=== PATIENT | male | born 1950 | race Caucasian/White ===

== ENCOUNTER 2016-09-21 01:53 | Emergency (ER) | payer MEDICARE, BC, OTHER ==
[~2016-09-21] VITALS: Ht 188 cm; Wt 104.3 kg
[2016-09-21] MEDS ORDERED: PRAV40TA2 (02:13)
[2016-09-21] MEDS ORDERED: TIMO5OPG (02:13)
[2016-09-21] MEDS ORDERED: FINA5TAB2 (02:13)
[2016-09-21] MEDS ORDERED: LATA5OPD (02:13)
[2016-09-21] MEDS ORDERED: HYDROmorphone HCL 1 MG/ML SYRINGE (J1170) As Ordered ONE (02:26)
[2016-09-21] MEDS ORDERED: KETOROLAC 30 MG/ML VIAL (J1885) As Ordered ONE (02:26)
[2016-09-21] MEDS ORDERED: ONDANSETRON 4MG/2ML VIAL (J2405) As Ordered ONE (02:26)
[2016-09-21] MEDS ORDERED: NS 1,000 ML IV ONE ×3 (02:30→06:00)
[2016-09-21] MEDS ORDERED: HYDROmorphone HCL 1 MG/ML SYRINGE (J1170) IV ONE ×3 (02:30→04:45)
[2016-09-21] MEDS ORDERED: KETOROLAC 30 MG/ML VIAL (J1885) IV ONE (02:30)
[2016-09-21 02:33] LABS: BASO % 0.4 % (0.0-1.0); EOS # 0.3 K/mm3 (0.0-0.50); EOS % 3.3 % (0.0-3.0); LARGE UNSTAINED CELL # 0.3 K/mm3 (0.0-0.4); LARGE UNSTAINED CELL % 3.2 % (0.0-4.0); LYMPH # 3.9 K/mm3 (1.5-4.5); LYMPH % 43.6 % (24.0-44.0); MEAN CORPUSCULAR HEMOGLOBIN 32.9 pg (27.0-33.0); MEAN CORPUSCULAR HGB CONC 35.1 g/dl (32.0-36.5); MEAN CORPUSCULAR VOLUME 93.6 fl (80.0-96.0); MONO # 0.7 K/mm3 (0.0-0.8); MONO % 8.1 % (0.0-5.0); NEUTROPHILS # 3.4 K/mm3 (1.8-7.7); NEUTROPHILS % 41.4 % (36.0-66.0); PLATELET COUNT, AUTOMATED 313 k/mm3 (150-450); WHITE BLOOD COUNT 8.3 K/mm3 (4.0-10.0)
[2016-09-21] MEDS ORDERED: ONDANSETRON 4MG/2ML VIAL (J2405) IV ONE (02:45)
[2016-09-21 02:51] LABS: ANION GAP 7 MEQ/L (8-16); BLOOD UREA NITROGEN 21 MG/DL (7-18); CALCIUM LEVEL 9.5 MG/DL (8.8-10.2); CARBON DIOXIDE LEVEL 28 MEQ/L (21-32); CHLORIDE LEVEL 105 MEQ/L (98-107); CREATININE FOR GFR 1.17 MG/DL (0.70-1.30); GLOMERULAR FILTRATION RATE > 60.0 (>49); GLUCOSE, FASTING 115 MG/DL (80-110); POTASSIUM SERUM 3.6 MEQ/L (3.5-5.1); SODIUM LEVEL 140 MEQ/L (136-145)
--- NOTE | 2016-09-21 03:20 | REPUSA ---
CLINICAL HISTORY: Abdominal pain. TECHNIQUE: Multiple axial, sagittal and coronal CT images were obtained through the abdomen and pelvi s without administration of oral or IV contrast material. COMMENTS: The liver is of uniform attenuation without mass or defect. There is no intra or extrahepatic biliary ductal dilatation. The spleen is normal. The gallbladder contains several small calcified stones. T he pancreas is of normal contour and attenuation characteristics. There is no evidence of adrenal mas s. The kidneys are normal in size, shape and configuration. No left renal or ureteral calculi are identi fied. 2 mm right UVJ calculus producing mild hydroureteronephrosis. Left mid sowmya renal cyst is noted measuring 3 cm, There is no evidence for appendicitis. There is no bowel wall thickening. No evidence for small or la rge bowel obstruction. There is no evidence of abdominal ascites or lymphadenopathy. There is no evidence of intrinsic or extrinsic bladder mass. There is no pelvic ascites or lymphadeno kira. Images of the lung bases show no evidence of pleural or parenchymal mass. There are no pleural effusi ons. The bony structures are free of lytic or blastic lesions. Multilevel degenerative changes are seen in volving the thoracolumbar spine. S/p bilateral totl hip replacement with severe streak artifacts. Scattered calcifications are seen involving the aorta and major branches compatible with atherosclero sis. IMPRESSION: 2 mm right UVJ calculus producing mild hydroureteronephrosis. Gallstones. Thank you for your kind referral of this patient.
[2016-09-21] MEDS ORDERED: TAMSULOSIN 0.4 MG CAP PO ONE (04:30)
[2016-09-21] MEDS ORDERED: VICO5TAB16 PO (06:23)
[2016-09-21 07:08] VITALS: BP 144/84
== END 2016-09-21 07:09 | disposition home or self-care (01) ==
LOC: M ED 03:23
DX: N20.1 Calculus of ureter (principal)
CPT/HCPCS: 74176; 80048; 85025; 96361; 96374; 96375; 96376; 99283; J1170; J1885; J2405

== ENCOUNTER → 2016-12-31 | Outpatient (REF) | payer MEDICARE, BC, OTHER ==
[~2016-12-31] MED LIST: FINA5TAB2; LATA5OPD; PRAV40TA2; TIMO5OPG; VICO5TAB16 PO
== END ==
LOC: M SMT 12:47
PROVIDERS: ATTEND Nurse Practitioner Women's Health
DX: N50.819 Testicular pain, unspecified (principal)
CPT/HCPCS: 81001; 87088; 87186; G0463

== ENCOUNTER → 2017-01-01 | Outpatient (CLI) | payer MEDICARE, BC, OTHER ==
--- NOTE | 2017-01-02 09:42 | REP ---
CT of the abdomen and pelvis without IV or bowel contrast: Comparison is 09/21/2016. The previous mild right hydronephrosis has resolved. The previous 2 mm calculus at the UVJ of the right ureter is no longer present. There are no renal or ureteral calculi on the right or left on the study today. There is a left renal mid pole cyst today measuring 3.9 cm (3.6 cm previously). The visualized lung hernandez are unremarkable. The unenhanced hepatic parenchyma is homogeneous. There are small calculi in the gallbladder. The gallbladder is otherwise unremarkable. Pancreas and spleen are normal size and unremarkable. The adrenals are unremarkable. The abdominal aorta is unremarkable. There is no bowel distension. Mesentery is unremarkable. Pelvis: The appendix has a normal appearance. There is no ascites. There is sigmoid diverticulosis without diverticulitis. There are bilateral hip arthroplasties resulting in significant beam-hardening artifact obscuring the inferior pelvis. This is unchanged. No pelvic adenopathy is identified. There is degenerative disc disease in the lumbar spine and L2-3, unchanged. Impression: There is no hydronephrosis. The previous distal right ureteral calculus is no longer present. There are no renal calculi. There is a left renal cyst. There is cholelithiasis. There is diverticulosis without diverticulitis. There are bilateral hip arthroplasties resulting in significant beam-hardening artifact. Signed by Jaime Hamm MD 01/02/2017 08:29 A
== END ==
LOC: M RAD 17:08
PROVIDERS: ATTEND Nurse Practitioner Women's Health
DX: N50.819 Testicular pain, unspecified (principal); N20.1 Calculus of ureter; N28.1 Cyst of kidney, acquired; N21.0 Calculus in bladder; K57.30 Diverticulosis of large intestine without perforation or abscess without bleeding

== ENCOUNTER → 2017-01-22 | Outpatient (CLI) | payer MEDICARE, BC, OTHER ==
[2017-01-23 14:15] LABS: PSA TOTAL 0.4 ng/mL (0.0-4.0)
== END ==
LOC: M SMT 09:19
PROVIDERS: ATTEND Urology
DX: N39.0 Urinary tract infection, site not specified (principal); N40.1 Benign prostatic hyperplasia with lower urinary tract symptoms
CPT/HCPCS: 36415; 51798; 84154; 87086; G0463

== ENCOUNTER 2017-08-09 15:41 | Emergency (ER) | payer MEDICARE, BC, OTHER ==
[2017-08-09] MEDS: fentaNYL 100 MCG/2 ML INJECTION (J3010) IV (16:04)
[2017-08-09] MEDS: OXYCODONE/APAP 5MG/325MG(BULK FOR ED) 1 TABLET PO (18:00)
[2017-08-09] MEDS: PERCOCET 5MG/325MG TAB PO (18:05)
== END 2017-08-09 18:16 | disposition home or self-care (01) ==
LOC: M ED 15:41
DX: S72.125A Nondisplaced fracture of lesser trochanter of left femur, initial encounter for closed fracture (principal); X58.XXXA Exposure to other specified factors, initial encounter; Y92.099 Unspecified place in other non-institutional residence as the place of occurrence of the external cause; Y93.9 Activity, unspecified; Y99.9 Unspecified external cause status; K57.90 Diverticulosis of intestine, part unspecified, without perforation or abscess without bleeding; Z79.899 Other long term (current) drug therapy; Z96.641 Presence of right artificial hip joint; Z96.642 Presence of left artificial hip joint
CPT/HCPCS: J3010

== ENCOUNTER → 2018-02-12 | Outpatient (REF) | payer MEDICARE, OTHER ==
[2018-02-12 14:35] LABS: TROPONIN I < 0.02 NG/ML (< 0.10)
[2018-02-13 14:10] LABS: Lyme Disease IgG/IgM Antibodie <0.91 ISR (0.00-0.90); Lyme Disease IgM Ab Quantitati <0.80 index (0.00-0.79)
== END ==
LOC: M LAB REF 12:27
DX: S20.162A Insect bite (nonvenomous) of breast, left breast, initial encounter (principal); R55 Syncope and collapse; Y93.9 Activity, unspecified; Y92.9 Unspecified place or not applicable; X58.XXXA Exposure to other specified factors, initial encounter
CPT/HCPCS: 84484

== ENCOUNTER → 2018-02-26 | Outpatient (CLI) | payer MEDICARE, BC, OTHER ==
[~2018-02-26] MED LIST changes: +E-Z-GAS II EFFERVESCENT PACKET (SODIUM BICARB./CITRIC ACID/SIMETHICONE) As Ordered; +E-Z-HD 98% w/w 340GM SUSP BTL As Ordered; +E-Z-PAQUE 96% w/w SUSP 176GM BTL As Ordered; -FINA5TAB2; -LATA5OPD; -PRAV40TA2; -TIMO5OPG; -VICO5TAB16 PO
== END ==
LOC: M RAD 09:14
DX: K21.9 Gastro-esophageal reflux disease without esophagitis (principal); K44.9 Diaphragmatic hernia without obstruction or gangrene
CPT/HCPCS: 74220

== ENCOUNTER → 2018-10-04 | Outpatient (CLI) | payer MEDICARE, BC, OTHER ==
[~2018-10-04] MED LIST changes: +COLA100C5 PO; -E-Z-GAS II EFFERVESCENT PACKET (SODIUM BICARB./CITRIC ACID/SIMETHICONE) As Ordered; -E-Z-HD 98% w/w 340GM SUSP BTL As Ordered; -E-Z-PAQUE 96% w/w SUSP 176GM BTL As Ordered; +FINA5TAB2; +LATA0.0013; +LISI10TA4; +PERC5TAB12 PO; +PRAV40TA2; +TIMO0.5S7; +VICO5TAB17 PO
--- NOTE | 2018-10-04 10:50 | REP ---
Right foot series: Four views. History: Pain in the right foot. Findings: Four views of the right foot demonstrate overall normal mineralization. There is mild osteoarthritis at the first MTP and first IP joints. Osteoarthritic spurring is seen at the PIP joint of the fifth digit as well. There is Achilles and plantar calcaneal spurring. No acute bony abnormality is seen. Impression: Osteoarthritic changes. No acute abnormality noted. Electronically Signed by Yinka Segura MD 10/04/2018 10:42 A
== END ==
LOC: M ADAMS 10:31
PROVIDERS: ATTEND Physician Assistant
DX: M19.071 Primary osteoarthritis, right ankle and foot (principal)

== ENCOUNTER → 2019-10-07 | Outpatient (REF) | payer MEDICARE, OTHER ==
[~2019-10-07] MED LIST changes: +LISI10TA22; -LISI10TA4
[2019-10-07 17:00] LABS: FOLATE 18.8 NG/ML
[2019-10-18 16:08] LABS: STRIATIONAL ANTIBODIES Negative (Neg:<1:40); VITAMIN B1 LEVEL WHOLE BLOOD 135.3 nmol/L (66.5-200.0); VITAMIN B6,PYRIDOXAL PHOSPHATE 17.9 ug/L (5.3-46.7); VITAMIN E(GAMMA TOCOPHEROL) 0.8 mg/L (0.5-4.9)
[2019-10-20 11:09] LABS: ACETYLCHOLINE RCPTOR BINDING A 0.05 nmol/L (0.00-0.24); ACETYLCHOLINE RCPTOR BLOCK AB 16 % (0-25); ACETYLCHOLINE RCPTOR MODULATIN <12 % (0-20)
== END ==
LOC: M LAB REF 11:53
PROVIDERS: ATTEND Internal Medicine
DX: H53.2 Diplopia (principal); E53.8 Deficiency of other specified B group vitamins

== ENCOUNTER 2019-12-07 14:12 | Emergency (ER) | payer MEDICARE, BC, OTHER ==
[~2019-12-07] VITALS: Ht 188 cm; Wt 104.5 kg
[~2019-12-07 14:12] MED LIST changes: -LISI10TA22; +LISI10TA4
--- NOTE | 2019-12-07 15:25 | REPVR ---
PROCEDURE INFORMATION: Exam: XR Left Hip with Pelvis when Performed Exam date and time: 12/07/2019 2:46 PM Age: 69 years old Clinical indication: Pain; Other: Hip TECHNIQUE: Imaging protocol: XR Left hip with pelvis when performed. Views: 2 or 3 views. COMPARISON: CT Pelvis without contrast 08/09/2017 5:15 PM FINDINGS: Bones/joints: There is a left total hip prosthesis. Anatomic alignment of the left prosthesis with no evidence of prosthetic fracture or dislocation or loosening . No fracture Soft tissues: Myositis ossificans present within the adjacent soft tissues. IMPRESSION: Satisfactory appearance of left total hip arthroplasty Electronically signed by: Aisha Kearns On 12/07/2019 15:25:17 PM
[2019-12-07 16:09] VITALS: BP 133/94
== END 2019-12-07 16:11 | disposition home or self-care (01) ==
LOC: M ED 14:12
DX: S73.102A Unspecified sprain of left hip, initial encounter (principal); X50.9XXA Other and unspecified overexertion or strenuous movements or postures, initial encounter; Y92.018 Other place in single-family (private) house as the place of occurrence of the external cause; Z79.899 Other long term (current) drug therapy

== ENCOUNTER 2020-08-27 13:49 | Emergency (ER) | payer MEDICARE, BC, OTHER ==
[~2020-08-27] VITALS: Ht 188 cm; Wt 104.5 kg
[~2020-08-27 13:49] MED LIST changes: +LISI10TA22; -LISI10TA4
[2020-08-27 14:41] LABS: BASO % 0.3 % (0.0-1.0); EOS # 0.1 10^3/uL (0.0-0.5); EOS % 0.7 % (0.0-3.0); HEMATOCRIT 44.8 % (42.0-52.0); HEMOGLOBIN 15.2 g/dl (13.5-17.5); LYMPH # 1.7 10^3/uL (1.5-5.0); LYMPH % 25.1 % (24.0-44.0); MEAN CORPUSCULAR HEMOGLOBIN 32.3 pg (27.0-33.0); MEAN CORPUSCULAR HGB CONC 33.9 g/dl (32.0-36.5); MEAN CORPUSCULAR VOLUME 95.3 fl (80.0-96.0); MONO # 0.5 10^3/uL (0.0-0.8); MONO % 7.7 % (2.0-8.0); NEUTROPHILS # 4.5 10^3/uL (1.5-8.5); NEUTROPHILS % 65.8 % (36.0-66.0); PLATELET COUNT, AUTOMATED 269 10^3/uL (150-450); WHITE BLOOD COUNT 6.8 10^3/uL (4.0-10.0)
--- NOTE | 2020-08-27 14:54 | REP ---
INDICATION: CHEST PAIN. COMPARISON: 10/05/2014. TECHNIQUE: Single portable AP view of the chest was performed. FINDINGS: There is no acute infiltrate or pulmonary edema. Lungs are clear. The heart is not significantly enlarged. The mediastinal silhouette is unremarkable. The visualized osseous structures are intact. IMPRESSION: No acute pulmonary disease. <Electronically signed by Jaime Iverson > 08/27/20 [id number]
[2020-08-27] MEDS ORDERED: ASPIRIN 325 MG TAB PO ONE (14:55)
[2020-08-27 15:16] LABS: ALT/SGPT 30 U/L (12-78); BILIRUBIN,DIRECT 0.2 MG/DL (0.0-0.2); BLOOD UREA NITROGEN 14 MG/DL (7-18); CALCIUM LEVEL 9.2 MG/DL (8.8-10.2); CARBON DIOXIDE LEVEL 28 MEQ/L (21-32); CHLORIDE LEVEL 106 MEQ/L (98-107); CK-MB VALUE MASS < 1.0 NG/ML (<3.6); CPK CREATINE PHOSPHOKINASE 135 U/L (39-308); CREATININE FOR GFR 0.79 MG/DL (0.70-1.30); GLOMERULAR FILTRATION RATE > 60.0 (>42); GLUCOSE, FASTING 79 MG/DL (70-100); LIPASE 68 U/L (73-393); MB/CK RELATIVE INDEX 0.74 (< OR =4); POTASSIUM SERUM 3.8 MEQ/L (3.5-5.1); SODIUM LEVEL 140 MEQ/L (136-145); TOTAL PROTEIN 7.9 GM/DL (6.4-8.2); TROPONIN I < 0.02 NG/ML (< 0.10)
[2020-08-27] MEDS ORDERED: ISOVUE-370 76% 100ML VIAL As Ordered ONE (15:21)
--- NOTE | 2020-08-27 16:00 | REP ---
INDICATION: right sided chest pain COMPARISON: None. TECHNIQUE: CT angiography the chest after the intravenous administration of 75 cc Isovue 370. Attention pulmonary arteries. FINDINGS: There is excellent visualization of the pulmonary arterial vasculature. No definite abnormal focal filling defects are present that would be considered consistent with acute pulmonary emboli. There is a single right upper lobe pulmonary arteriole which for a short-segment is not contrast opacified, however, this opacifies with contrast more distally. This represents an imaging artifact. The thoracic aorta is within normal limits. There is an aberrant right subclavian artery. The imaged upper abdomen shows cholelithiasis. The imaged osseous structures are within normal limits for the patient's age. Evaluation of the lung hernandez shows no abnormal nodules, masses, passes. IMPRESSION: 1. There is no evidence of pulmonary embolus. 2. Aberrant right subclavian artery. 3. Cholelithiasis <Electronically signed by Nahid Vanessa > 08/27/20 [id number]
--- NOTE | 2020-08-27 20:13 | ECGEPIP ---
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
--- NOTE | 2020-08-27 20:17 | ECGEPIP ---
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
[2020-08-27 20:24] LABS: CK-MB VALUE MASS < 1.0 NG/ML (<3.6); CPK CREATINE PHOSPHOKINASE 117 U/L (39-308); MB/CK RELATIVE INDEX 0.85 (< OR =4); TROPONIN I < 0.02 NG/ML (< 0.10)
[2020-08-27 21:10] VITALS: BP 122/90
== END 2020-08-27 21:43 | disposition home or self-care (01) ==
LOC: M ED 13:49
DX: R07.9 Chest pain, unspecified (principal); E78.5 Hyperlipidemia, unspecified; N40.0 Benign prostatic hyperplasia without lower urinary tract symptoms; Z87.19 Personal history of other diseases of the digestive system; Z79.899 Other long term (current) drug therapy; Z87.891 Personal history of nicotine dependence
CPT/HCPCS: 36415; 71045; 71275; 80048; 80076; 82550; 82553; 83690; 84484; 85025; 85379; 93005; 93041; 94760; 99284; Q9967

== ENCOUNTER → 2021-10-17 | Outpatient (REF) | payer MEDICARE, BC, OTHER | LOC: M LAB REF 12:08 | PROVIDERS: ATTEND Internal Medicine | DX: Z96.643 Presence of artificial hip joint, bilateral (principal) ==

== ENCOUNTER → 2021-11-05 | Outpatient (CLI) | payer MEDICARE, BC, OTHER | LOC: M RAD 10:26 | PROVIDERS: ATTEND Physician Assistant | DX: Z96.643 Presence of artificial hip joint, bilateral (principal) | CPT/HCPCS: 78315; A9503 ==

== ENCOUNTER → 2022-09-17 | Outpatient (CLI) | payer MEDICARE, BC, OTHER ==
[2022-09-17 09:57] LABS: BASO % 0.6 % (0.0-1.0); EOS # 0.1 10^3/uL (0.0-0.5); EOS % 2.5 % (0.0-3.0); HEMATOCRIT 43.4 % (42.0-52.0); HEMOGLOBIN 14.8 g/dl (13.5-17.5); LYMPH # 1.3 10^3/uL (1.5-5.0); LYMPH % 26.9 % (24.0-44.0); MEAN CORPUSCULAR HEMOGLOBIN 32.2 pg (27.0-33.0); MEAN CORPUSCULAR HGB CONC 34.1 g/dl (32.0-36.5); MEAN CORPUSCULAR VOLUME 94.6 fl (80.0-96.0); MONO # 0.4 10^3/uL (0.0-0.8); MONO % 9.1 % (2.0-8.0); NEUTROPHILS # 2.9 10^3/uL (1.5-8.5); NEUTROPHILS % 60.7 % (36.0-66.0); PLATELET COUNT, AUTOMATED 262 10^3/uL (150-450); RED BLOOD COUNT 4.59 10^6/uL (4.30-6.10); WHITE BLOOD COUNT 4.7 10^3/uL (4.0-10.0)
[2022-09-17 10:30] LABS: C REACTIVE PROTEIN QUANTITATIV < 0.40 MG/DL (<1.0)
[2022-09-17 11:02] LABS: ERYTHROCYTE SEDIMENTATION RATE 20 mm/hr (0-20)
== END ==
LOC: M LAB 09:09
PROVIDERS: ATTEND Orthopaedic Surgery
DX: Z96.641 Presence of right artificial hip joint (principal)

== ENCOUNTER → 2023-04-02 | Outpatient (REF) | payer MEDICARE, OTHER | LOC: M LAB REF 17:42 | PROVIDERS: ATTEND Internal Medicine | DX: M25.551 Pain in right hip (principal) ==

== ENCOUNTER → 2023-04-08 | Outpatient (CLI) | payer MEDICARE, BC, OTHER | LOC: M RAD 06:28 | PROVIDERS: ATTEND Orthopaedic Surgery Adult Reconstructive Orthopaedic Surgery | DX: M25.551 Pain in right hip (principal); Z96.641 Presence of right artificial hip joint; R93.7 Abnormal findings on diagnostic imaging of other parts of musculoskeletal system | CPT/HCPCS: 73700; 78315; A9503 ==

== ENCOUNTER 2023-05-24 18:53 | Emergency (ER) | payer MEDICARE, BC, OTHER ==
[~2023-05-24] VITALS: Ht 188 cm; Wt 95.5 kg
[2023-05-24] MEDS ORDERED: ELIQ5TAB PO (18:59)
[2023-05-24] MEDS ORDERED: ISOVUE-370 76% 100ML VIAL As Ordered ONE (20:49)
[2023-05-24 20:56] LABS: HEMOGLOBIN 15.4 g/dl (13.5-17.5); MEAN CORPUSCULAR HEMOGLOBIN 31.5 pg (27.0-33.0); MEAN CORPUSCULAR HGB CONC 34.2 g/dl (32.0-36.5); PLATELET COUNT, AUTOMATED 270 10^3/uL (150-450); RED BLOOD COUNT 4.89 10^6/uL (4.30-6.10); WHITE BLOOD COUNT 5.6 10^3/uL (4.0-10.0)
[2023-05-24 21:08] LABS: INR 1.15; PARTIAL THROMBOPLASTIN TIME 28.3 SECONDS (24.8-34.2); PROTHROMBIN TIME 14.4 SECONDS (12.5-14.5)
[2023-05-24 21:31] LABS: CK-MB VALUE MASS < 1.0 NG/ML (<3.6)
[2023-05-24 21:33] LABS: CPK CREATINE PHOSPHOKINASE 98 U/L (46-171); MB/CK RELATIVE INDEX 1.02 (< OR =4)
[2023-05-24 22:47] VITALS: BP 143/93; TEMP 97.6; O2SAT 99
[2023-05-27 11:14] LABS: DRVV SCREEN 42.4 SECONDS
[2023-05-27 11:28] LABS: PTT LUPUS TYPE ANTICOAG SCREEN 1.01 (0-1.20)
[2023-06-04 18:12] LABS: ANTI THROMBIN 3 ANTIGEN IMMUNO 80 % (72-124); ANTI THROMBIN 3 FUNCT ACTIVITY 99 % (75-135); CARDIOLIPIN IGA ANTIBODY 9 APL U/mL (0-11); CARDIOLIPIN IGG ANTIBODY 25 GPL U/mL (0-14); CARDIOLIPIN IGM ANTIBODY <9 MPL U/mL (0-12); PHOSPHOLIPIDS LEVEL 199 mg/dL (127-261); PROTEIN C FUNCTIONAL ACTIVITY 102 % (73-180); PROTEIN S FUNCTIONAL ACTIVITY 101 % (63-140)
== END 2023-05-24 22:53 | disposition home or self-care (01) ==
LOC: M ED 18:53
DX: I82.402 Acute embolism and thrombosis of unspecified deep veins of left lower extremity (principal); F10.10 Alcohol abuse, uncomplicated; I48.91 Unspecified atrial fibrillation; Z79.899 Other long term (current) drug therapy
CPT/HCPCS: 36415; 71275; 72110; 80047; 81240; 81241; 82550; 82553; 83880; 84311; 84484; 85027; 85300; 85301; 85303; 85305; 85610; 85730; 86147; 93005; 93971; 99284; Q9967

== ENCOUNTER → 2023-06-11 | Outpatient (CLI) | payer MEDICARE, BC, OTHER ==
[~2023-06-11] MED LIST changes: +ELIQ5TAB PO
== END ==
LOC: M PLAIMG 14:23
PROVIDERS: ATTEND Internal Medicine
DX: I48.0 Paroxysmal atrial fibrillation (principal)

== ENCOUNTER → 2023-07-28 | Outpatient (CLI) | payer MEDICARE, BC | LOC: M RAD 09:15 | PROVIDERS: ATTEND Internal Medicine | DX: M79.605 Pain in left leg (principal); R22.42 Localized swelling, mass and lump, left lower limb; Z86.718 Personal history of other venous thrombosis and embolism ==

== ENCOUNTER → 2023-12-09 | Outpatient (CLI) | payer MEDICARE, BC ==
[~2023-12-09] MED LIST changes: +ISOVUE-370 76% 100ML VIAL As Ordered ONE
== END ==
LOC: M RAD 14:11
PROVIDERS: ATTEND Orthopaedic Surgery
DX: M54.2 Cervicalgia (principal)
CPT/HCPCS: 70491; Q9967

== ENCOUNTER → 2024-01-25 | Outpatient (CLI) | payer MEDICARE, BC ==
[~2024-01-25] MED LIST changes: -ISOVUE-370 76% 100ML VIAL As Ordered ONE
== END ==
LOC: M RAD 10:31
PROVIDERS: ATTEND Internal Medicine
DX: D11.0 Benign neoplasm of parotid gland (principal)

== ENCOUNTER → 2024-03-25 | Outpatient (CLI) | payer MEDICARE, BC ==
[~2024-03-25] MED LIST changes: +ISOVUE-370 76% 100ML VIAL ONE
== END ==
LOC: M PLAIMG 12:07
PROVIDERS: ATTEND Internal Medicine
DX: I77.810 Thoracic aortic ectasia (principal); I31.39 Other pericardial effusion (noninflammatory); Z86.718 Personal history of other venous thrombosis and embolism; K80.20 Calculus of gallbladder without cholecystitis without obstruction
CPT/HCPCS: 71275; Q9967

== ENCOUNTER → 2024-08-22 | Outpatient (REF) | payer MEDICARE, BC ==
[~2024-08-22] MED LIST changes: -ISOVUE-370 76% 100ML VIAL ONE
[2024-08-23 12:03] LABS: T P ELECTROPHORESIS SO 7.4 g/dL (6.1-8.1)
== END ==
LOC: M LAB REF 12:07
PROVIDERS: ATTEND Internal Medicine
DX: G62.9 Polyneuropathy, unspecified (principal); E53.8 Deficiency of other specified B group vitamins; E56.0 Deficiency of vitamin E

== ENCOUNTER → 2024-10-25 | Outpatient (CLI) | payer MEDICARE, BC ==
[~2024-10-25] MED LIST changes: +ASPI81CH33 PO; -PRAV40TA2; +PRAV40TA85
== END ==
LOC: M PLAIMG 13:20
PROVIDERS: ATTEND Internal Medicine
DX: I77.810 Thoracic aortic ectasia (principal)